=== PATIENT | male | born 1965 | race Caucasian/White ===

== ENCOUNTER 2019-03-28 17:26 | Emergency (ER) | payer BC ==
--- OUTSIDE RECORDS SUMMARY | 2019-03-28 17:35 | XMS REPORT | Continuity of Care Document ---
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 Payers Date Identification Numbers Payment Provider Subscriber Effective: Policy Number: [id number] [employer] Orlando Swenson 2012 PayID: [id number] [address] [address] [place] [address] Problems Active Problems Provider Date Pure hypercholesterolemia Onset: 04/25/2016 Bilateral carpal tunnel syndrome Chelsey Nettles, WASTE DUSTER Onset: 03/05/2019 Malignant lymphoma of extranodal AND/OR DigiovanVenessa plattChelsey, WASTE DUSTER Onset: 03/05 solid organ site Mixed hyperlipidemia Chelsey Nettles, WASTE DUSTER Onset: 03/05/2019 Resolved Problems Benign essential hypertension Onset: 04/25/2016 Resolved: 03/02/2018 Family History Date Family Member(s) Observation Comments General Diabetes, Adult father General Hypertension parents General Depression father, sister General Obesity father, sister General Anxiety mother General Lymphoma sister Social History Type Date Description Comments Sex Unknown Education Higest level completed, Bachelor's Degree Marital Status Lives With Children Lives With Spouse Pets 1 cat 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 ETOH Use Occasionally consumes alcohol 2 drinks/wk Tobacco Use Start: Unknown Patient has never smoked Allergies, Adverse Reactions, Alerts Description No Known Drug Allergies Medications Active Medications SIG Qnty Indications Ordering Provider Date Multivitamin Adult 1 by mouth every OTC Z00.00 Digiovanna, 04/25/2016 day Chelsey, WASTE DUSTER Tablets Atorvastatin Calcium Take One Tablet 90tabs E78.2 Digiovanna, 04/25/2016 10mg By Mouth Every Chelsey, WASTE DUSTER Tablets Day Osteo Bi-Flex Advanced 1 by mouth every M25.552 Unknown Triple Strength day Tablets M54.5 History Medications Lisinopril Take One 90tabs I10 Digiovanna, 07/26/2016 - 5mg Tablet By Chelsey, WASTE DUSTER 01/25/2017 Tablets Mouth Every Day Glucosamine 2 po daily M25.552 Unknown - 500mg 08/25/2017 Tablets M54.5 Immunizations CPT Code Status Date Vaccine Reaction Lot # [id number] Given 06/19/2018 Afluria Imunization Q2039 Given 06/21/2017 [place] Vacc[place] NOS 24008 Given 05/30/2016 Influenza Virus DONE AT WORK Vaccine,Quadrivalent,Split,Prese rv Free, 0.5mL,[place] [address] Given 09/08/2015 Prevnar 13 Pneumococal Conjugate [facility] Vaccine 01790 Given 07/18/2015 Influenza Virus [facility] Vaccine,Quadrivalent,Split,Prese rv Free, 0.5mL,[place] [address] Given 03/17/2015 Tdap (Adacel) Ages 7 And Above [facility] Only 85642 Given 06/25/2014 Influenza Virus [facility] Vaccine,Quadrivalent,Split,Prese rv Free, 0.5mL,[place] [address] Given 07/16/2008 Pneumococcal 23 Immunization [facility] Adult Or Immunosuppressed Patient 51927 Given 07/28/2005 Tetanus And Diptheria Toxoids [facility] For Adult Use-preservative free Vital Signs Date Vital Result Comment 03/05/2019 3:50pm Weight 208.00 lb Heart Rate 70 /min BP Systolic 124 mmHg BP Diastolic 88 mmHg Respiratory Rate 16 /min Height 66.5 inches 5'6.50" 03/05/19 BMI (Body Mass Index) 33.1 kg/m2 03/02/2018 3:43pm Weight 211.25 lb Heart Rate 68 /min BP Systolic 114 mmHg BP Diastolic 60 mmHg Respiratory Rate 16 /min Height 66.5 inches 5'6.50"11/21/17 BMI (Body Mass Index) 33.6 kg/m2 11/21/2017 8:02am Weight 212.00 lb Heart Rate 68 /min BP Systolic 122 mmHg BP Diastolic 78 mmHg Respiratory Rate 18 /min Height 66.5 inches 5'6.50"11/21/17 BMI (Body Mass Index) 33.7 kg/m2 08/25/2017 2:29pm Weight 215.00 lb Heart Rate 60 /min BP Systolic 116 mmHg BP Diastolic 82 mmHg Respiratory Rate 14 /min Height 66.5 inches 5'6.50" BMI (Body Mass Index) 34.2 kg/m2 01/25/2017 3:08pm Weight 202.00 lb Heart Rate 72 /min BP Systolic 120 mmHg BP Diastolic 80 mmHg Respiratory Rate 18 /min Height 66.5 inches 5'6.50" 01/25/17 BMI (Body Mass Index) 32.1 kg/m2 07/27/2016 3:40pm Weight 206.00 lb Heart Rate 74 /min BP Systolic 120 mmHg BP Diastolic 74 mmHg Respiratory Rate 16 /min Height 66.5 inches 5'6.50" 07/27/16 BMI (Body Mass Index) 32.7 kg/m2 Results Test Date Facility Test Result H/L Range Note CBC with Auto Diff-fcmg 02/26/2019 [facility] 5.4 K/uL 4.1-11.0 1 RBC 4.71 M/uL 4.60-6.10 Hemoglobin 15.0 gm/dL 13.5-18.0 Hematocrit 45.1 % 41.0-53.0 MCV 95.8 fL 80.0-97.0 MCH 32.0 pg 27.0-32.0 MCHC 33.4 g/dL 32.0-36.0 RDW 13.1 % 11.5-14.5 PLT Count 217 K/ul 140-400 MPV 8.3 FL 7.1-10.7 Neutrophil 37.5 % 35.0-75.0 Lymphocyte 49.1 % 16.0-52.0 Monocyte 7.7 % 2.0-10.0 Eosinophil 4.7 % 0.0-5.0 Basophil 1.0 % 0.0-4.0 Abs Neutrophils 2.0 K/uL Low 2.1-8.0 Abs Lymphocytes 2.7 K/uL 0.8-5.5 Abs Monocytes 0.4 K/uL 0.1-1.0 Abs Eosinophils 0.3 K/uL 0.0-0.5 Abs Basophils 0.1 K/uL 0.0-0.3 Basic (BMP) 02/26/2019 [facility] Sodium 139 mmol/L 135-146 2 Potassium 4.5 mmol/L 3.5-5.2 Chloride# 103 mmol/L 97-110 3 Carbon Dioxide 30 mmol/L 24-34 Glucose 99 mg/dL 70-105 BUN 21 mg/dL 6-26 Creatinine 1.3 mg/dL 0.5-1.4 Calcium 9.5 mg/dL 8.5-10.5 4 Female Egfr 48 Low >60 5 Male Egfr 64 >60 6 Anion Gap 6 mmol/L 5-15 7 Lipid Treatment 02/26/2019 [facility] Cholesterol 157 mg/dL 50-199 Triglycerides 123 mg/dL 30-200 HDL 44 mg/dL 29-71 8 Chol/ HDL Ratio 3.6 ratio Low 4.0-6.7 VLDL 25 mg/dL 2-29 LDL (Calc) 88 mg/dL 20-99 9 Alt 23 U/L 3-42 Ast 22 U/L 8-42 Lipid 09/03/2018 [facility] Cholesterol 184 mg/dL 50-199 10 Triglycerides 199 mg/dL 30-200 HDL 45 mg/dL - 11 Chol/ HDL Ratio 4.1 ratio 4.0-6.7 VLDL 40 mg/dL High 2-29 LDL (Calc) 99 mg/dL 20-99 12 Basic (BMP) 09/03/2018 [facility] Sodium 142 mmol/L 135-146 13 Potassium 4.2 mmol/L 3.5-5.2 Chloride# 104 mmol/L 97-110 14 Carbon Dioxide 31 mmol/L 24-34 Glucose 77 mg/dL 70-105 BUN 16 mg/dL 6-26 Creatinine 1.2 mg/dL 0.5-1.4 Calcium 9.8 mg/dL 8.5-10.2 Non Liane Egfr >60 >60 15 Liane Egfr >60 >60 16 Anion Gap 7 mmol/L 5-15 17 Laboratory test 02/15/2018 [facility] PSA 0.340 ng/mL 0.000-4.000 18, 19 finding Lipid Treatment 02/15/2018 [facility] Cholesterol 189 mg/dL 50-199 Triglycerides 249 mg/dL High 30-200 HDL 44 mg/dL 20 Chol/ HDL Ratio 4.3 ratio 4.0-6.7 VLDL 50 mg/dL High 2-29 LDL (Calc) 95 mg/dL 20-99 21 Alt 27 U/L 3-42 Ast 20 U/L 8-42 Basic (BMP) 02/15/2018 [facility] Sodium 143 mmol/L 135-146 22 Potassium 4.9 mmol/L 3.5-5.2 Chloride# 106 mmol/L 97-110 23 Carbon Dioxide 30 mmol/L 24-34 Glucose 95 mg/dL 70-105 BUN 23 mg/dL 6- Creatinine 1.3 mg/dL 0.5-1.4 Calcium 10.1 mg/dL 8.5-10.2 Non Liane Egfr 58 Low >60 24 Liane Egfr >60 >60 25 Anion Gap 7 mmol/L 5-15 26 CBC With Auto Diff 02/15/2018 [facility] WBC 6.7 K/uL 4.1-11.0 RBC 4.76 M/uL 4.60-6.10 Hemoglobin 15.0 gm/dL 13.5-18.0 Hematocrit 45.0 % 41.0-53.0 MCV 94.5 fL 80.0-97.0 MCH 31.4 pg 27.0-32.0 MCHC 33.2 g/dL 32.0-36.0 RDW 13.3 % 11.5-14.5 PLT Count 234 K/ul 140-400 MPV 8.8 FL 7.1-10.7 Neutrophil 42.5 % 35.0-75.0 Lymphocyte 42.6 % 16.0-52.0 Monocyte 8.2 % 2.0-10.0 Eosinophil 5.8 % High 0.0-5.0 Basophil 0.9 % 0.0-4.0 Abs Neutrophils 2.9 K/uL 2.1-8.0 Abs Lymphocytes 2.9 K/uL 0.8-5.5 Abs Monocytes 0.6 K/uL 0.1-1.0 Abs Eosinophils 0.4 K/uL 0.0-0.5 Abs Basophils 0.1 K/uL 0.0-0.3 Lipid Treatment 07/28/2017 [facility] Cholesterol 181 mg/dL 50-199 27 Triglycerides 216 mg/dL High 30-200 HDL 38 mg/dL 28 Chol/ HDL Ratio 4.7 ratio 4.0-6.7 VLDL 43 mg/dL High 2-29 LDL (Calc) 99 mg/dL 20-99 29 Alt 29 U/L 3-42 Ast 21 U/L 8-42 Basic (BMP) 07/28/2017 [facility] Sodium 143 mmol/L 135-146 30 Potassium 4.6 mmol/L 3.5-5.2 Chloride# 107 mmol/L 97-110 31 Carbon Dioxide 27 mmol/L 24-34 Glucose 97 mg/dL 70-105 Creatinine 1.3 mg/dL 0.5-1.4 Calcium 9.4 mg/dL 8.5-10.2 Non Liane Egfr 61 >60 32 Liane Egfr >60 >60 33 Anion Gap 9 mmol/L 7-16 34 BUN 16 mg/dL 6-26 Laboratory test finding 01/24/2017 [facility] Vit D,25 Hydroxy 40 ng/mL 31- 100 35 TSH 2.07 uIU/mL 0.35-4.94 Lipid Treatment 01/24/2017 [facility] Cholesterol 155 mg/dL 50-199 Triglycerides 94 mg/dL 30-200 HDL 45 mg/dL 29- 36 Chol/ HDL Ratio 3.5 ratio Low 4.0-6.7 VLDL 19 mg/dL 2-29 LDL (Calc) 92 mg/dL 20-99 37 Alt 18 U/L 3-42 Ast 19 U/L 8- Comprehensive Metabolic (CMP) 01/24/2017 [facility] Sodium 138 mmol/L 135- 146 38 Potassium 4.8 mmol/L 3.5-5.2 Chloride# 105 mmol/L 97-110 39 Carbon Dioxide 27 mmol/L 24-34 Glucose 102 mg/dL 70-105 BUN 21 mg/dL 6- Creatinine 1.3 mg/dL 0.5-1.4 Calcium 9.6 mg/dL 8.5-10.2 Total Protein 6.6 g/dL 6.0-8.0 Albumin 4.2 g/dL 3.6-4.9 Globulin 2.4 g/dL 2.0-3.5 A/G Ratio 1.8 Ratio 1.0-2.2 Total Bilirubin 0.3 mg/dL 0.1-1.3 Alkaline Phosphatase 39 U/L 24-140 Alt 18 U/L 3-42 Ast 19 U/L 8-42 Liane Egfr >60 >60 40 Non Liane Egfr 60 Low >60 41 Anion Gap 11 mmol/L 7-16 42 CBC With Auto Diff 01/24/2017 [facility] WBC 5.7 K/uL 4.1-11.0 RBC 4.42 M/uL Low 4.60-6.10 Hemoglobin 14.0 gm/dL 13.5-18.0 Hematocrit 42.2 % 41.0-53.0 MCV 95.4 fL 80.0-97.0 MCH 31.6 pg 27.0-32.0 MCHC 33.1 g/dL 32.0-36.0 RDW 13.2 % 11.5-14.5 PLT Count 231 K/ul 140-400 Neutrophil 39.2 % 35.0-75.0 Lymphocyte 45.2 % 16.0-52.0 Monocyte 7.7 % 2.0-10.0 Eosinophil 7.3 % High 0.0-5.0 Basophil 0.6 % 0.0-4.0 Abs Neutrophils 2.3 K/uL 2.1-8.0 Abs Lymphocytes 2.6 K/uL 0.8-5.5 Abs Monocytes 0.4 K/uL 0.1-1.0 Abs Eosinophils 0.4 K/uL 0.0-0.5 Abs Basophils 0.0 K/uL 0.0-0.3 HIV Combo By [facility] 01/24/2017 [facility] [employer] [employer] HIV Combo NON REACTIVE Non Reactive 1 to be done 1 week prior to February 2019 OV 2 Updated reference range on new analyzer 3 Updated reference range on new analyzer 4 Updated reference range 01-23-2019 5 Concerning GFR Guidelines for Americans: Normal function or mild renal disease, if clinically at risk: >/=60 mL/min Moderately decreased: 30-59 Severely decreased: 15-29 Renal failure: <15 There is reduced accuracy above 60ml/min/1.73 m squared, but the numeric value may be clinically useful in the near 60 range 6 Concerning GFR Guidelines: Normal function or mild renal disease, if clinically at risk: >/=60 mL/min Moderately decreased: 30-59 Severely decreased: 15-29 Renal failure: <15 There is reduced accuracy above 60ml/min/1.73 m squared, but the numeric value may be clinically useful in the near 60 range Glomerular Filtration Rate (GFR) is estimated based on the CKD-EPI equation, which assumes a steady state for creatinine as recommended by the National Kidney Disease Education Program in conjunction with the National Institutes of Health and the National Kidney Foundation. Clinical conditions in which it may be necessary to measure GFR by using clearance methods include extremes of age and body size, severe malnutrition or obesity, diseases of skeletal muscle, paraplegia or quadriplegia, vegetarian diet, rapidly changing kidney function, and calculation of the dose of potentially toxic drugs that are excreted by the kidneys. 7 Updated Reference Range 8 Per NCEP ATP III Guidelines: Results lower than 40 mg/dL are suggestive of increased risk for coronary artery disease. Results > or=to 60 mg/dL are considered a negative risk factor. 9 Per NCEP ATP III Guidelines: Normal Population <130 Patients with medical conditions: CHD/DM Optimal: <100 Borderline high: 130-159 High: 160-189 Very high: >189 10 to be done Aug 2018 11 Per NCEP ATP III Guidelines: Results lower than 40 mg/dL are suggestive of increased risk for coronary artery disease. Results > or=to 60 mg/dL are considered a negative risk factor. 12 Per NCEP ATP III Guidelines: Normal Population <130 Patients with medical conditions: CHD/DM Optimal: <100 Borderline high: 130-159 High: 160-189 Very high: >189 13 Updated reference range on new analyzer 14 Updated reference range on new analyzer 15 Concerning GFR Guidelines: Normal function or mild renal disease, if clinically at risk: >/=60 mL/min Moderately decreased: 30-59 Severely decreased: 15-29 Renal failure: <15 Glomerular Filtration Rate (GFR) is estimated based on the MDRD equation, which assumes a steady state for creatinine as recommended by the National Kidney Disease Education Program in conjunction with the National Institutes of Health and the National Kidney Foundation. Clinical conditions in which it may be necessary to measure GFR by using clearance methods include extremes of age and body size, severe malnutrition or obesity, diseases of skeletal muscle, paraplegia or quadriplegia, vegetarian diet, rapidly changing kidney function, and calculation of the dose of potentially toxic drugs that are excreted by the kidneys. 16 Concerning GFR Guidelines for Americans: Normal function or mild renal disease, if clinically at risk: >/=60 mL/min Moderately decreased: 30-59 Severely decreased: 15-29 Renal failure: <15 17 Updated Reference Range 18 to be done 1 week prior to February 2018 OV Beginning 11/20/06 PSA values assayed at [employer] uses chemiluminescence methodology manufactured by [employer] for use on the DXI analyzer. Values obtained with different assay methods or kits can not be used interchangeably. Serum PSA measurement is not an absolute test for malignancy. The PSA value should be used in conjunction with information available from clinical evaluation and other diagnostic procedures. 20 Per NCEP ATP III Guidelines: Results lower than 40 mg/dL are suggestive of increased risk for coronary artery disease. Results > or=to 60 mg/dL are considered a negative risk factor. 21 Per NCEP ATP III Guidelines: Normal Population <130 Patients with medical conditions: CHD/DM Optimal: <100 Borderline high: 130-159 High: 160-189 Very high: >189 22 Updated reference range on new analyzer 23 Updated reference range on new analyzer 24 Concerning GFR Guidelines: Normal function or mild renal disease, if clinically at risk: >/=60 mL/min Moderately decreased: 30-59 Severely decreased: 15-29 Renal failure: <15 Glomerular Filtration Rate (GFR) is estimated based on the MDRD equation, which assumes a steady state for creatinine as recommended by the National Kidney Disease Education Program in conjunction with the National Institutes of Health and the National Kidney Foundation. Clinical conditions in which it may be necessary to measure GFR by using clearance methods include extremes of age and body size, severe malnutrition or obesity, diseases of skeletal muscle, paraplegia or quadriplegia, vegetarian diet, rapidly changing kidney function, and calculation of the dose of potentially toxic drugs that are excreted by the kidneys. 25 Concerning GFR Guidelines for Americans: Normal function or mild renal disease, if clinically at risk: >/=60 mL/min Moderately decreased: 30-59 Severely decreased: 15-29 Renal failure: <15 26 Updated Reference Range 27 to be done 1 week prior to Jul 2017 OV 28 Per NCEP ATP III Guidelines: Results lower than 40 mg/dL are suggestive of increased risk for coronary artery disease. Results > or=to 60 mg/dL are considered a negative risk factor. 29 Per NCEP ATP III Guidelines: Normal Population <130 Patients with medical conditions: CHD/DM Optimal: <100 Borderline high: 130-159 High: 160-189 Very high: >189 30 Updated reference range on new analyzer 31 Updated reference range on new analyzer 32 Concerning GFR Guidelines: Normal function or mild renal disease, if clinically at risk: >/=60 mL/min Moderately decreased: 30-59 Severely decreased: 15-29 Renal failure: <15 Glomerular Filtration Rate (GFR) is estimated based on the MDRD equation, which assumes a steady state for creatinine as recommended by the National Kidney Disease Education Program in conjunction with the National Institutes of Health and the National Kidney Foundation. Clinical conditions in which it may be necessary to measure GFR by using clearance methods include extremes of age and body size, severe malnutrition or obesity, diseases of skeletal muscle, paraplegia or quadriplegia, vegetarian diet, rapidly changing kidney function, and calculation of the dose of potentially toxic drugs that are excreted by the kidneys. 33 Concerning GFR Guidelines for Americans: Normal function or mild renal disease, if clinically at risk: >/=60 mL/min Moderately decreased: 30-59 Severely decreased: 15-29 Renal failure: <15 34 Updated reference range on new analyzer 35 to be done 1 week prior to early January 2017 OV 36 Per NCEP ATP III Guidelines: Results lower than 40 mg/dL are suggestive of increased risk for coronary artery disease. Results > or=to 60 mg/dL are considered a negative risk factor. 37 Per NCEP ATP III Guidelines: Normal Population <130 Patients with medical conditions: CHD/DM Optimal: <100 Borderline high: 130-159 High: 160-189 Very high: >189 38 Updated reference range on new analyzer 39 Updated reference range on new analyzer 40 Concerning GFR Guidelines for Americans: Normal function or mild renal disease, if clinically at risk: >/=60 mL/min Moderately decreased: 30-59 Severely decreased: 15-29 Renal failure: <15 41 Concerning GFR Guidelines: Normal function or mild renal disease, if clinically at risk: >/=60 mL/min Moderately decreased: 30-59 Severely decreased: 15-29 Renal failure: <15 Glomerular Filtration Rate (GFR) is estimated based on the MDRD equation, which assumes a steady state for creatinine as recommended by the National Kidney Disease Education Program in conjunction with the National Institutes of Health and the National Kidney Foundation. Clinical conditions in which it may be necessary to measure GFR by using clearance methods include extremes of age and body size, severe malnutrition or obesity, diseases of skeletal muscle, paraplegia or quadriplegia, vegetarian diet, rapidly changing kidney function, and calculation of the dose of potentially toxic drugs that are excreted by the kidneys. 42 Updated reference range on new analyzer Procedures Date Code Description Status 11/16/2016 42423337 Colonoscopy Completed Encounters Type Date Location Provider Dx Diagnosis Office Visit 03/02/2018 [facility] Nettles, Z00.00 Encntr for general 3:30p Chelsey WASTE DUSTER adult medical exam w/o abnormal findings E78.2 Mixed hyperlipidemia I10 Essential (primary) hypertension G56.03 Carpal tunnel syndrome, bilateral upper limbs C85.90 Non-Hodgkin lymphoma, unspecified, unspecified site Z68.33 Body mass index (BMI) 33.0-33.9, adult Office Visit 11/21/2017 8:15a TG Nettles M70.22 Olecranon bursitis, Chelsey, WASTE DUSTER LEFT elbow Office Visit 08/25/2017 2:30p TG Nettles E78.2 Mixed hyperlipidemia Chelsey, WASTE DUSTER I10 Essential (primary) hypertension C85.90 Non-Hodgkin lymphoma, unspecified, unspecified site G56.03 Carpal tunnel syndrome, bilateral upper limbs Z12.5 Encounter for screening for malignant neoplasm of prostate Z68.34 Body mass index (BMI) 34.0-34.9, adult Office Visit 01/25/2017 3:00p Chelsey Burgos, Z00.00 Encntr for general WASTE DUSTER adult medical exam w/o abnormal findings I10 Essential (primary) hypertension E78.2 Mixed hyperlipidemia C85.90 Non-Hodgkin lymphoma, unspecified, unspecified site G56.03 Carpal tunnel syndrome, bilateral upper limbs Z68.32 Body mass index (BMI) 32.0-32.9, adult Office Visit 07/27/2016 3:30p Peyman Burgosia, I10 Essential ( primary) WASTE DUSTER hypertension E78.2 Mixed hyperlipidemia Z68.32 Body mass index (BMI) 32.0-32.9, adult C85.90 Non-Hodgkin lymphoma, unspecified, unspecified site G56.03 Carpal tunnel syndrome, bilateral upper limbs M54.5 Low back pain M25.552 Pain in LEFT hip Z11.4 Encounter for screening for human immunodeficiency virus Z12.11 Encounter for screening for malignant neoplasm of colon Plan of Treatment Future Appointment(s):03/06/2020 3:30 pm - Valencia Hdez NP at [facility]03/05/2019 - Chelsey Nettles NPZ00.00 Encounter for general adult medical examination without abnoComments:Discussed general health maintenance, alcohol in moderation, safety.Continue daily multivitamin Tdap due olonoscopy due 2026PSA due next yearRecommend Shingrix and annual flu vaccineFollow up:1 yr. for routine PE, sooner PRN for illness or injury (Kisha)E78.2 Mixed hyperlipidemiaNew Labs:Lipid Treatment, Ordered: 03/05/19Basic (BMP), Ordered: 03/05/19Comments:Continue Atorvastatin.Limit fat and cholesterol in diet.C85.90 Non-Hodgkin lymphoma, unspecified, unspecified siteNew Labs:CBC with Auto Diff- fcmg, Ordered: 03/05/19Comments:Will follow annual labsG56.03 Carpal tunnel syndrome, bilateral upper limbsComments:Will continue to monitor Continue use of supportive sopzlfO56.5 Encounter for screening for malignant neoplasm of prostateNew Labs:PSA, Ordered: 03/05/19Z13.31 Encounter for screening for yygpqafwxeU30.33 Body mass index (BMI) 33.0-33.9, adultComments:Healthy well balanced diet with portion control.Encouraged increased daily exercise to 30-60' .
[2019-03-28 17:41] VITALS: BP 114/79
--- NOTE | 2019-03-28 17:49 | UC ---
Skin Complaint HPI - HPI Summary HPI Summary: Pt has a rash left upper arm. ? tick bite. Pt did not remove a tick from the site. - History of Current Complaint Time Seen by Provider: 03/28/19 17:32 Stated Complaint: TICK BITE Hx Obtained From: Patient Onset/Duration: Sudden Onset, Lasting Days Skin Exposure Onset/Duration: Days Ago Timing: Constant Onset Severity: Mild Current Severity: Mild Pain Intensity: 0 Location: Discrete Character: Redness Related History: Possible Reaction to: Insect - Allergy/Home Medications Allergies/Adverse Reactions: Allergies Allergy/AdvReac Type Severity Reaction Status Date / Time No Known Allergies Allergy Verified 07/31/15 15:39 PMH/Surg Hx/FS Hx/Imm Hx Previously Healthy: Yes - Surgical History Surgical History: Yes Surgery Procedure, Year, and Place: BIOPSY ON LYMPHNODE - Family History Known Family History: Positive: Hypertension - Social History Alcohol Use: Occasionally Substance Use Type: None Smoking Status (MU): Never Smoked Tobacco Review of Systems All Other Systems Reviewed And Are Negative: Yes Skin: Positive: Other - area of redness Is Patient Immunocompromised?: No Physical Exam Triage Information Reviewed: Yes Appearance: Well-Appearing, Well-Nourished, Pain Distress Vital Signs: Initial Vital Signs Temp 99.0 F 03/28/19 17:37 Pulse 79 03/28/19 17:37 Resp 16 03/28/19 17:37 BP 114/79 03/28/19 17:37 Pulse Ox 97 03/28/19 17:37 Vital Signs Reviewed: Yes Eye Exam: Normal ENT Exam: Normal Dental Exam: Normal Neck exam: Normal Respiratory Exam: Normal Cardiovascular Exam: Normal Abdominal Exam: Normal Bowel Sounds: Positive: Present Musculoskeletal Exam: Normal Neurological Exam: Normal Psychological Exam: Normal Skin: Positive: Significant Lesion(s) - large area of erythema with small raised center Course/Dx - Course Course Of Treatment: hx obtained, exam performed ,meds reviewed, educated on tick bites and histamine reactions - Differential Diagnoses - Skin Complaint Differential Diagnoses: Tick Born Illness - Diagnoses Provider Diagnosis: Insect bite Discharge - Sign-Out/Discharge Documenting (check all that apply): Patient Departure All imaging exams completed and their final reports reviewed: No Studies - Discharge Plan Condition: Stable Disposition: HOME Patient Education Materials: Insect Bite or Sting (ED), Tick Bite (ED) Referrals: Chelsey Nettles [Primary Care Provider] - Additional Instructions: 1. your red area looks like a histamine reaction to a bug bite. A tick bite has a different appearance. 2. I am including some information on tick bites and lyme disease symtpoms for your review. - Billing Disposition and Condition Condition: STABLE Disposition: Home
== END 2019-03-28 17:55 | disposition home or self-care (01) ==
LOC: UCCORT 17:26
DX: S40.862A Insect bite (nonvenomous) of left upper arm, initial encounter (principal); W57.XXXA Bitten or stung by nonvenomous insect and other nonvenomous arthropods, initial encounter; Y92.9 Unspecified place or not applicable
CPT/HCPCS: 99211; G0463